=== PATIENT | male | born 1975 | race Caucasian/White ===

== ENCOUNTER → 2023-05-02 | Emergency (ER) | payer OTHER ==
[~2023-05-02] MED LIST: NA CHLORIDE 0.9% 1,000 ML ONE
[2023-05-02 11:38] LABS: Absolute Eosinophils 0.2 K/uL (0-0.5); Absolute Lymphocytes (CBC) 1.8 K/uL (0.7-4.9); Absolute Monocytes 0.6 K/uL (0.1-1.3); Absolute Neutrophil 4.2 K/uL (1.8-8.0); Basophils % 0.6 % (0-1.3); Eosinophils % 2.2 % (0-4.4); Hematocrit 46.1 % (39.6-49.0); Hemoglobin 15.6 g/dL (13.6-17.9); Lymphocytes % 26.1 % (15.3-44.8); MCH 29.5 pg (27.0-35.0); MCHC 33.9 g/dL (32.0-36.0); MPV 8.1 fL (7.6-11.3); Monocytes % 8.9 % (3.3-12.3); Neutrophils % 62.2 % (41.7-73.7); Platelets 244 thou/uL (152-406); RBC Red Blood Cell Count 5.29 M/uL (4.33-5.43); Red Cell Distribution Width 14.6 % (12.1-15.2)
[2023-05-02 11:43] LABS: PT Prothrombin Time 11.9 SECONDS (9.5-12.5); PTT, Activated Partial Thromb 32.7 SECONDS (24.3-36.9); Protime INR 1.08
--- NOTE | 2023-05-02 11:43 | RAD REPORT ---
EXAM DESCRIPTION: CT - Abdomen Pelvis Wo Contrast - 05/02/2023 11:34 am CLINICAL HISTORY: Abdominal pain. HEMATURIA COMPARISON: No comparisons TECHNIQUE: CT imaging of the abdomen and pelvis was performed without contrast. Solid organ, bowel a nd vascular assessment is limited due to lack of IV and oral contrast. All CT scans are performed using dose optimization technique as appropriate and may include automated exposure control or mA/KV adjustment according to patient size. FINDINGS: The lower lung rodriguez are clear. The liver demonstrates diffuse fatty infiltration. Spleen, pancreas, adrenal glands and left kidney a re within normal limits for a limited non-contrast examination.3 mm stone proximal right ureter resul ts in minimal right hydronephrosis additional punctate calculus is seen right anterior mid pole right renal calyx. No bowel obstruction, free air, free fluid or abscess. The appendix is normal. The osseous structures are within normal limits. IMPRESSION: 3 mm stone proximal right ureter resulting minimal right hydronephrosis. Additional righ t-sided calculus. Diffuse fatty liver. A limited non-contrast examination was performed as detailed.
[2023-05-02 11:49] LABS: Sqamous Epithelial None Seen /HPF (None Seen); Urine Bacteria None Seen /HPF (<20); Urine Culture Reflex Order NOT NEEDED; Urine Micro Reflex YN NO BILL MICROSCOPIC; Urine Mucus Slight /HPF (None Seen); Urine RBC >50 /HPF (None Seen); Urine Yeast (Budding) Occasional /HPF (None Seen)
[2023-05-02 11:51] LABS: Albumin 4.1 g/dL (3.4-5.0); Albumin/Globulin Ratio 1.2 (1.1-1.8); Anion Gap 13.6 mEq/L (5.0-15.0); Bilirubin Total 0.5 mg/dL (0.2-1.0); Globulin 3.3 g/dL (2.3-3.5); Potassium 3.6 mEq/L (3.5-5.1); Protein, Total 7.4 g/dL (6.4-8.2)
[2023-05-02 11:57] LABS: Specific Gravity 1.015 (1.005-1.030); Urine Bilirubin NEGATIVE (Negative); Urine Blood 3+ (OVER) (Negative); Urine Clarity Extremely Turbid (Clear); Urine Color Light-Brown (Yellow); Urine Glucose 4+ (Over) (Negative); Urine Ketones NEGATIVE (Negative); Urine Nitrite NEGATIVE (Negative); Urine Protein 1+ (Negative); Urine Urobilinogen Normal (Normal)
--- NOTE | 2023-05-02 12:03 | ER ---
Nurse's Notes [facility] Name: Jose Brower Age: 47 yrs Sex: Male : 1975 Arrival Date: 05/02/2023 Time: 10:32 Bed 2 Private MD: Diagnosis: Gross hematuria;ureteral stone Presentation: 05/01 10:57 Chief complaint: Patient states: Blood in urine that just began 1 hour ago. Pt states aa5 "I did hurt my back about a week ago playing tennis and my lower back has been hurting". Pt reports he takes Eliquis. 10:57 Acuity: STEFANIE 3 aa5 10:57 Method Of Arrival: Ambulatory aa5 10:57 Coronavirus screen: At this time, the client does not indicate any symptoms associated aa5 with coronavirus-19. Ebola Screen: Patient denies travel to an Ebola-affected area in the 21 days before illness onset. Initial Sepsis Screen: Does the patient meet any 2 criteria? No. Patient's initial sepsis screen is negative. Does the patient have a suspected source of infection? No. Patient's initial sepsis screen is negative. Risk Assessment: Do you want to hurt yourself or someone else? Patient reports no desire to harm self or others. Onset of symptoms was May 02, 2023. Historical: - Allergies: 10:58 No Known Allergies; aa5 - PMHx: 10:58 Blood clot right fingers; Hypertensive disorder; Diabetes mellitus; aa5 - PSHx: 10:58 sinus sx; ACL repair; Adenoid excision; Tonsillectomy; Vasectomy; right ear drum; aa5 - Immunization history:: Adult Immunizations unknown. - Social history:: Smoking status: Patient denies any tobacco usage or history of. Screenin:14 [facility] ED Fall Risk Assessment (Adult) History of falling in the last 3 months, ld1 including since admission No falls in past 3 months (0 pts). Abuse screen: Denies threats or abuse. Denies injuries from another. Nutritional screening: No deficits noted. Tuberculosis screening: No symptoms or risk factors identified. Assessment: 11:14 General: Appears in no apparent distress. comfortable, Behavior is calm, cooperative, ld1 appropriate for age. Pain: Complains of pain in low back area Pain does not radiate. Pain currently is 3 out of 10 on a pain scale. Quality of pain is described as throbbing, Pain began 1 day ago. Is continuous. Neuro: Level of Consciousness is awake, alert, obeys commands, Oriented to person, place, time, situation. Cardiovascular: Capillary refill < 3 seconds Patient's skin is warm and dry. Respiratory: Airway is patent Respiratory effort is even, unlabored. GI: Abdomen is round non-distended. : Urine is blood tinged, elke blood, Reports pain in bilateral flank(s). EENT: No signs and/or symptoms were reported regarding the EENT system. Derm: No signs and/or symptoms reported regarding the dermatologic system. Musculoskeletal: No signs and/or symptoms reported regarding the musculoskeletal system. 11:16 Reassessment: Pt reports pulling back muscle this week playing tennis. Blood in urine ld1 began this morning. Pt reports minimal flank pain. Pt is taking Eliquis for previous blood clot to thumb 1 year ago. 11:17 Reassessment: ERP at bedside with patient. ld1 12:11 Reassessment: Pt wants to finish fluids prior to D/C. 400cc left in bag at this time. ld1 Vital Signs: 10:57 BP 145 / 95; Pulse 98; Resp 16 S; Temp 97.8(TE); Pulse Ox 98% on R/A; Weight 95.25 kg aa5 (R); Height 5 ft. 8 in. (R); 11:14 BP 141 / 93; Pulse 95; Resp 18; Pulse Ox 96% on R/A; ld1 12:11 BP 132 / 83; Pulse 90; Resp 18; Pulse Ox 98% on R/A; Pain 3/10; ld1 10:57 Body Mass Index 31.93 (95.25 kg, 172.72 cm) aa5 12:11 Pain Scale: Adult ld1 ED Course: 10:35 Patient arrived in ED. im 10:35 Dhruv Mari MD is Attending Physician. cp3 10:57 Arm band placed on. aa5 10:58 Triage completed. aa5 11:01 Patricia Joseph, DEMARCO is Primary Nurse. ld1 11:14 Patient has correct armband on for positive identification. Placed in gown. Bed in low ld1 position. Call light in reach. Side rails up X2. court recording monitor on. Pulse ox on. NIBP on. Door closed. Noise minimized. Warm blanket given. 11:14 No provider procedures requiring assistance completed. Inserted saline lock: 20 gauge ld1 in left forearm, using aseptic technique. Blood collected. 11:31 Urinalysis W/Microscopic Sent. ld1 11:31 CBC with Diff Sent. ld1 11:31 Comprehensive Metabolic Panel Sent. ld1 11:31 PT-INR Sent. ld1 11:31 Ptt, Activated Sent. ld1 11:36 CT Abd/Pelvis - Without Contrast In Process Unspecified. EDMS 12:02 Crow Jamison MD is Referral Physician. cp3 12:31 IV discontinued, intact, bleeding controlled, No redness/swelling at site. ld1 Administered Medications: 11:31 Drug: NS 0.9% IV 1000 ml IV at 1 bolus Per protocol; 1000 mL bolus Route: IV; Rate: 1 ld1 bolus; Site: left forearm; Medication: 11:14 VIS not applicable for this client. ld1 Outcome: 12:03 Discharge ordered by MD. cp3 12:31 Discharged to home ambulatory, with family, ld1 12:31 Condition: stable 12:31 Discharge instructions given to patient, Instructed on discharge instructions, follow up and referral plans. medication usage, Demonstrated understanding of instructions, follow-up care, medications, Prescriptions given X 2, 12:31 Patient left the ED. ld1 Signatures: Dispatcher [employer] [id number] Dhruv Mari MD MD cp3 Ruth Brandon RN RN aa5 Patricia Joseph RN RN ld1 Shilpa Holbrook Corrections: (The following items were deleted from the chart) 11:01 11:00 BP 145 / 95; Pulse 98bpm; Resp 16bpm; Spontaneous; Pulse Ox 98% RA; Temp 97.8F aa5 Temporal; 95.25 kg Reported; Height 5 ft. 8 in. Reported; BMI: 31.9; aa5
--- NOTE | 2023-05-02 12:03 | EDPHYS ---
Physician Documentation [facility] Name: Jose Brower Age: 47 yrs Sex: Male : 1975 Arrival Date: 05/02/2023 Time: 10:32 Bed 2 Private MD: ED Physician Dhruv Mari HPI: 05/01 12:06 This 47 yrs old Male presents to ER via Ambulatory with complaints of Urinating blood. cp3 11:21 Patient is a 47-year-old male with a history as blood clot in the right finger which cp3 she is on Eliquis, hypertension, diabetes presents to the ED with acute onset of blood in the urine this started roughly 3 hours ago. The patient does not have any associated abdominal or flank pain and no dysuria. No trauma no history of recent UTI. Historical: - Allergies: 10:58 No Known Allergies; aa5 - PMHx: 10:58 Blood clot right fingers; Hypertensive disorder; Diabetes mellitus; aa5 - PSHx: 10:58 sinus sx; ACL repair; Adenoid excision; Tonsillectomy; Vasectomy; right ear drum; aa5 - Immunization history:: Adult Immunizations unknown. - Social history:: Smoking status: Patient denies any tobacco usage or history of. ROS: 11:22 Constitutional: Negative for fever, chills, and weight loss, Cardiovascular: Negative cp3 for chest pain, palpitations, and edema, Respiratory: Negative for shortness of breath, cough, wheezing, and pleuritic chest pain, Back: Negative for injury and pain, MS/Extremity: Negative for injury and deformity, Skin: Negative for injury, rash, and discoloration, Neuro: Negative for headache, weakness, numbness, tingling, and seizure, Psych: Negative for depression, anxiety, suicide ideation, homicidal ideation, and hallucinations, Allergy/Immunology: Negative for hives, rash, and allergies, 11:22 : Positive for hematuria, Exam: 11:22 Constitutional: This is a well developed, well nourished patient who is awake, alert, cp3 and in no acute distress. Chest/axilla: Normal chest wall appearance and motion. Nontender with no deformity. No lesions are appreciated. Cardiovascular: Regular rate and rhythm with a normal S1 and S2. No gallops, murmurs, or rubs. Normal PMI, no JVD. No pulse deficits. Respiratory: Lungs have equal breath sounds bilaterally, clear to auscultation and percussion. No rales, rhonchi or wheezes noted. No increased work of breathing, no retractions or nasal flaring. Abdomen/GI: Soft, non-tender, with normal bowel sounds. No distension or tympany. No guarding or rebound. No evidence of tenderness throughout. Back: No spinal tenderness. No costovertebral tenderness. Full range of motion. MS/ Extremity: Pulses equal, no cyanosis. Neurovascular intact. Full, normal range of motion. Neuro: Awake and alert, GCS 15, oriented to person, place, time, and situation. Cranial nerves II-XII grossly intact. Motor strength 5/5 in all extremities. Sensory grossly intact. Cerebellar exam normal. Normal gait. Psych: Awake, alert, with orientation to person, place and time. Behavior, mood, and affect are within normal limits. Vital Signs: 10:57 BP 145 / 95; Pulse 98; Resp 16 S; Temp 97.8(TE); Pulse Ox 98% on R/A; Weight 95.25 kg aa5 (R); Height 5 ft. 8 in. (R); 11:14 BP 141 / 93; Pulse 95; Resp 18; Pulse Ox 96% on R/A; ld1 12:11 BP 132 / 83; Pulse 90; Resp 18; Pulse Ox 98% on R/A; Pain 3/10; ld1 10:57 Body Mass Index 31.93 (95.25 kg, 172.72 cm) aa5 12:11 Pain Scale: Adult ld1 MDM: 11:10 Patient medically screened. cp3 11:23 Differential Diagnosis The differential diagnosis includes hematuria, hemorrhagic UTI, cp3 UTI, nephrolithiasis, bladder inflammation, anemia, coagulopathy. Data reviewed: vital signs, nurses notes. Consideration of Admission/Observation Escalation of care including admission/observation considered. I considered the following discharge prescriptions or medication management in the emergency department Medications were administered in the Emergency Department. See APR. 12:08 Data reviewed: radiologic studies, CT scan. Independent interpretation of the following cp3 test(s) in the Emergency Department CT Scan: My interpretation is renal stone on right. Response to treatment: the patient's symptoms have markedly improved after treatment. 05/01 11:21 Order name: CBC with Diff; Complete Time: 11:48 cp3 05/01 11:21 Order name: Comprehensive Metabolic Panel; Complete Time: 12:08 cp3 05/01 11:21 Order name: PT-INR; Complete Time: 11:48 cp3 05/01 11:21 Order name: Ptt, Activated; Complete Time: 11:48 cp3 05/01 11:21 Order name: Urinalysis W/Microscopic; Complete Time: 12:08 cp3 05/01 11:21 Order name: CT Abd/Pelvis - Without Contrast; Complete Time: 11:48 cp3 05/01 11:21 Order name: Saline Lock; Complete Time: 11:23 cp3 Administered Medications: 11:31 Drug: NS 0.9% IV 1000 ml IV at 1 bolus Per protocol; 1000 mL bolus Route: IV; Rate: 1 ld1 bolus; Site: left forearm; Disposition Summary: 05/02/23 12:03 Discharge Ordered Notes: Location: Home cp3 Condition: Stable cp3 Diagnosis - Gross hematuria cp3 - ureteral stone cp3 Followup: cp3 - With: Crow Jamison MD - When: - Reason: Continuance of care Discharge Instructions: - Discharge Summary Sheet cp3 - Hematuria, Adult cp3 - Kidney Stones cp3 Forms: - Medication Reconciliation Form cp3 - Thank You Letter cp3 - Antibiotic Education cp3 - Prescription Opioid Use cp3 - Patient Portal Instructions cp3 - Leadership Thank You Letter cp3 Prescriptions: - tylenol 3 1 tab every 8 hours as needed for pain #12 - take 1 tablet ORAL route 3 times per day As needed; 12 tablet; Refills: 0, cp3 Product Selection Permitted - Ibuprofen 600 mg Oral Tablet - take 1 tablet ORAL route every 6 hours As needed take with food; 30 tablet; cp3 Refills: 0, Product Selection Permitted Signatures: Dispatcher [employer] Dhruv Santiago MD MD cp3 Ruth Brandon RN RN aa5 Patricia Joseph RN RN ld1
[2023-05-02 12:53] VITALS: BP 132/83; TEMP 97.8; O2SAT 98
== END ==
LOC: ER 10:32
DX: N20.1 Calculus of ureter (principal); E11.9 Type 2 diabetes mellitus without complications; I10 Essential (primary) hypertension
CPT/HCPCS: 85025; 81001; 36415; 85610; 85730; 80053; 74176; 99285; J7030